=== PATIENT | female | born 1970 | race Caucasian/White ===

== ENCOUNTER 2022-12-11 17:44 | Emergency (ER) | payer BC, SELFPAY ==
[2022-12-11 17:52] VITALS: BP 116/79; PULSE 89; RESP 16; TEMP 36.5; O2SAT 99
--- NOTE | 2022-12-11 17:54 | ED.BACK ---
HPI - Back Pain/Injury General Chief Complaint: Back Pain/Injury Stated Complaint: Upper Back Pain Time Seen by Provider: 12/11/22 17:55 Source: patient and RN notes reviewed History of Present Illness HPI Narrative: Patient is a 52-year-old female presents to urgent care with complaints of right upper back pain radiating down the right arm. 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 Patient states that she went to the chiropractor and they told her ?she had a rib out of place?. Patient states that she went for a few days in a row and then he suggested she follow up with the urgent care. Patient has been taking multiple ibuprofen doses per day. Denies any known injury or any recent strenuous activity. No other acute complaints. No acute distress noted. Patient aware of plan of care. Some parts of this dictation were generated by voice recognition software and may contain typographical and/or grammatical inaccuracies. Related Data Allergies Allergy/AdvReac Type Severity Reaction Status Date / Time No Known Allergies Allergy Verified 12/11/22 18:14 Review of Systems Review of Systems: CONSTITUTIONAL: Denies fever, chills, or sweats. EYES: Denies visual changes, redness, or discharge. ENT: Denies rhinorrhea, congestion, sore throat, or otalgia. CARDIOVASCULAR: Denies chest pain, palpitations, or edema. RESPIRATORY: Denies cough or dyspnea. GASTROINTESTINAL: Denies abdominal pain, nausea, vomiting, or diarrhea. GENITOURINARY: Denies dysuria or hematuria. SKIN: Denies rash or itching. MUSCULOSKELETAL: Reports of right upper back pain radiating down the right arm NEUROLOGIC: Denies headache, numbness, or weakness. All other systems reviewed are negative, except as documented in HPI. PMFSH Comments At the time of my signature, I reviewed and agree with the nursing past medical, surgical, social, and family history. There is no relevant family history pertinent to the patient complaint. Exam Narrative: GENERAL: This is a well-nourished, well-developed patient, in no apparent distress. HEAD: normocephalic, atraumatic. EYES: PERRL. Sclera clear/white. Vision is grossly intact. EARS: External ears normal NOSE: External nose normal with no obvious nasal discharge, nares without redness, no rhinorrhea. THROAT: Mucous membranes moist NECK: Neck supple, non-tender without lymphadenopathy SKIN: warm, intact with no suspicious lesions or rash, good texture and turgor. NEURO: awake, alert, and oriented to person, place and time. There were no obvious focal neurologic abnormalities. EXTREMITIES: Range of motion right upper extremity within normal limits with mild exacerbated pain on adduction to the scapular region. Moderate tenderness to the right scapular region. Positive strong right radial pulse with capillary refill less than 2 seconds Course Course Level of Care: Express Care Visit Vital Signs Vital signs: Vital Signs Temperature 97.7 F 12/11/22 17:52 Pulse Rate 89 12/11/22 17:52 Respiratory Rate 16 12/11/22 17:52 Blood Pressure 116/79 12/11/22 17:52 Pulse Oximetry 99 12/11/22 17:52 Oxygen Delivery Room Air 12/11/22 17:52 Temperature 97.7 F 12/11/22 17:52 Pulse Rate 89 12/11/22 17:52 Respiratory Rate 16 12/11/22 17:52 Blood Pressure 116/79 12/11/22 17:52 Pulse Oximetry 99 12/11/22 17:52 Oxygen Delivery Room Air 12/11/22 17:52 Reviewed MDM - Back Pain/Injury MDM Narrative Medical decision making narrative: Advised patient to complete the steroid regimen as prescribed. Start the medication in the morning to avoid keeping you up at night. Use the Flexeril as needed for muscle relaxer. Best to take prior to bedtime. The medication will make you drowsy and would not advise operating heavy machinery or working while on the medication. You may cut the pill in half to decrease drowsiness. Use the ibuprofen as needed for pain or discomfort. Do not take in
== END 2022-12-11 18:28 | disposition home or self-care (01) ==
PROVIDERS: Emergency Provider Nurse Practitioner Family; PCP Emergency Medicine
DX: M54.12 Radiculopathy, cervical region (principal)
CPT/HCPCS: 99213; G0463

== ENCOUNTER 2023-01-25 14:45 | Emergency (ER) | payer BC, SELFPAY ==
--- NOTE | ~2023-01-25 | XR_ITS ---
EXAMINATION: XR chest 2V Exam Date/Time: 01/25/2023 15:15 CDT HISTORY: PERSISTANT COUGH. SOB/CONGESTION X 1 DAY. Comparison: None available. RESULT: Lines, tubes, and devices: None. Lungs and pleura: Mild diffuse reticulonodular opacities and cuffing. Cardiomediastinal silhouette: Unremarkable. Other: No acute osseous or upper abdominal finding. IMPRESSION: Pulmonary opacities may represent bronchiolitis, as can be seen with atypical infection, asthma, aspi ration, and small airways disease. Reviewed, dictated and finalized at location K. IMPRESSION: Pulmonary opacities may represent bronchiolitis, as can be seen with atypical i nfection, asthma, aspiration, and small airways disease.
[2023-01-25 14:52] VITALS: BP 168/90; PULSE 139; RESP 20; TEMP 37.2; O2SAT 96
--- NOTE | 2023-01-25 15:13 | ED.GENADULT ---
HPI - General Adult General Chief complaint: Upper Respiratory Infection Stated complaint: can't breath/coughing Source: patient Mode of arrival: ambulatory Limitations: no limitations History of Present Illness HPI narrative: Patient presents for evaluation of respiratory symptoms. She indicates she had itchy eyes and rhinorrhea on of last week. The following day she developed a fever. Yesterday she developed a cough which has been nonproductive in nature. She has associated SOB and a burning sensation in her chest. Denies any sore throat, nausea, vomiting, diarrhea. No recent sick contacts to her knowledge. She does not smoke. She has had COVID three times in the past. She has tried dayquil, nyquil, cough drops and theraflu for her symptoms. No personal or family history of DVT or PE. No leg swelling. She does receive estrogen replacement in pellet form. Related Data Home Medications Medication Instructions Recorded Confirmed progesterone micronized 100 mg 100 mg PO HS 01/25/23 01/25/23 capsule Allergies Allergy/AdvReac Type Severity Reaction Status Date / Time No Known Allergies Allergy Verified 01/25/23 14:57 Review of Systems Review of Systems: CONSTITUTIONAL: Reports fever. Denies chills, or sweats. EYES: Denies visual changes, redness, or discharge. ENT: Reports rhinorrhea and bilateral ear pain. Denies sore throat. CARDIOVASCULAR: Reports burning sensation in her chest. Denies chest pain, palpitations, or edema. RESPIRATORY: Reports nonproductive cough and shortness of breath. GASTROINTESTINAL: Denies abdominal pain, nausea, vomiting, or diarrhea. GENITOURINARY: Denies dysuria or hematuria. SKIN: Denies rash or itching. MUSCULOSKELETAL: Denies back pain, joint pain, or myalgia. NEUROLOGIC: Denies headache, numbness, dizziness, or weakness. PSYCHIATRIC: Denies anxiety or depression. [facility] Past Medical History Medical History No pertinent past medical history Surgical History Surgical History No pertinent past surgical history Family History Family History Mother Family history non-contributory Social History Social History Smoking status: Never smoker Substance use: never Gender identity (if verbalized by the patient): Female Spiritual care concerns: No Exam Narrative: GENERAL: Well-appearing, well-nourished, and in no acute distress. HEAD: Normocephalic, atraumatic. EYES: PERRLA and EOMI. ENT: Nares clear, no rhinorrhea or epistaxis. Mucous membranes moist. Oropharynx without tonsillar hypertrophy exudate or other lesions. Bilateral TMs pearly carlos nonbulging NECK: Supple. No adenopathy or masses. No carotid bruits or JVD CHEST: Cough present on exam. No adventitious lung sounds. HEART: Normal rhythm. Rate 120 during coughing episodes. No murmur heard. Normal peripheral pulses. ABDOMEN: Soft, nontender, nondistended, normal active bowel sounds. EXTREMITIES: Normal range of motion. No edema. SKIN: Warm, dry, no rash. NEURO: No focal deficits. Alert and oriented x3. PSYCH: Normal mood and affect. Course Course Emergency Course: This is a 52-year-old female who presented for evaluation of sick symptoms. COVID negative. Influenza A positive. Chest x-ray consistent with viral infection. She was given steroids and neb treatment while here. Cough significantly improved. Heart rate improved to 110 beats per minute. Tachycardia likely secondary to frequent coughing and albuterol. She feels comfortable going home. Increase hydration. [id number] agents for symptom management. Will DC with Tamiflu and albuterol. Go to the ER for difficulty breathing or swelling. Follow-up with primary provider. Patient in agre
[2023-01-25] MEDS: ALBUTEROL SULFATE NEB 2.5 MG/3 ML INH INHALATION (15:30)
[2023-01-25] MEDS: IPRATROPIUM BR 0.02% INH SOLN 0.5 MG/2.5 ML VIAL INHALATION (15:30)
[2023-01-25] MEDS: methylPREDNISolone SOD SUCC 125 MG VIAL IM (15:31)
== END 2023-01-25 16:23 | disposition home or self-care (01) ==
PROVIDERS: Emergency Provider Nurse Practitioner; PCP Family Medicine
DX: J10.1 Influenza due to other identified influenza virus with other respiratory manifestations (principal); Z20.822 Contact with and (suspected) exposure to COVID-19
CPT/HCPCS: 71046; 87426; 87804; 96372; 99213; C9803; G0463; J2930

== ENCOUNTER 2023-06-21 10:33 | Emergency (ER) | payer BC, SELFPAY ==
--- NOTE | ~2023-06-21 | XR_ITS ---
EXAMINATION: XR wrist LT min 3V DATE: 06/21/2023 11:02 INDICATION: Left wrist pain TECHNIQUE: Posteroanterior, ulnar deviation, oblique, and lateral views of the left wrist were obtain ed. COMPARISON: None available FINDINGS: Bone alignment is normal. There is no fracture. The soft tissues are unremarkable. IMPRESSION: 1. No acute osseous abnormality. Reviewed, dictated and finalized at location A.
[2023-06-21 10:40] VITALS: BP 113/66; PULSE 86; RESP 18; TEMP 36.6; O2SAT 98
[2023-06-21 10:55] VITALS: BP 113/66; PULSE 86; RESP 18; TEMP 36.6; O2SAT 98
--- NOTE | 2023-06-21 10:57 | ED.UPPEXIN ---
HPI - Extremity Injury (Upper) General Chief Complaint: Extremity Injury, Upper Stated Complaint: Left Wrist Injury History of Present Illness HPI narrative: patient presents with wrist pain left wrist pain. patient reports hitting the wall yesterday and felt a pop to left wrist. mild bruising to wrist no deformity noted no numbness or tingling no open areas noted Related Data Home Medications Medication Instructions Recorded Confirmed progesterone micronized 100 mg 100 mg PO HS 01/25/23 06/21/23 capsule Allergies Allergy/AdvReac Type Severity Reaction Status Date / Time No Known Allergies Allergy Verified 06/21/23 10:55 Review of Systems Review of Systems: CONSTITUTIONAL: Denies fever, chills, or sweats. EYES: Denies visual changes, redness, or discharge. ENT: Denies rhinorrhea, congestion, sore throat, or otalgia. CARDIOVASCULAR: Denies chest pain, palpitations, or edema. RESPIRATORY: Denies cough or dyspnea. GASTROINTESTINAL: Denies abdominal pain, nausea, vomiting, or diarrhea. GENITOURINARY: Denies dysuria or hematuria. SKIN: Denies rash or itching. MUSCULOSKELETAL: Denies back pain, joint pain, or myalgia. NEUROLOGIC: Denies headache, numbness, or weakness. PSYCHIATRIC: Denies anxiety or depression. [facility] Past Medical History Medical History No pertinent past medical history Surgical History Surgical History No pertinent past surgical history Family History Family History Mother Family history non-contributory Social History Social History Smoking status: Never smoker Substance use: never Gender identity (if verbalized by the patient): Female Spiritual care concerns: No Comments At time of signature, agree with nursing past medical, surgical, social and family history. There is no relevant family history pertinent to the presenting complaint Exam Narrative: GENERAL: Well-appearing, well-nourished, and in no acute distress. HEAD: Normocephalic, atraumatic. EYES: PERRLA and EOMI. ENT: Nares clear, no rhinorrhea or epistaxis. Mucous membranes moist. NECK: Supple. CHEST: Clear to auscultation. No respiratory distress. HEART: Regular rate and rhythm. No murmur heard. Normal peripheral pulses. ABDOMEN: Soft, nontender, nondistended, normal active bowel sounds. EXTREMITIES: Normal range of motion. No edema. HAND EXAM - Skin intact, no laceration, no swelling, no erythema, normal digit cascade with flexion of fingers, median nerve, ulnar nerve, radial nerve is intact. Normal sensation of each side of each finger, can perform `ok? sign, `cross over finger test of index and middle fingers? and `thumbs up? sign, normal thumb opposition, no scissoring. good capillary refill and radial pulse. normal flexion and extension of fingers and wrist. normal supination at wrist. Normal forearm and elbow exam.left wrist some bruising noted SKIN: Warm, dry, no rash. NEURO: No focal deficits. Alert and oriented x3. Two Dot Coma Scale Eye Opening: Spontaneous 4 Two Dot Coma Scale Motor: Obeys Commands 6 Sona Coma Scale Verbal: Oriented 5 Sona Coma Scale Total 15 Course Course Level of Care: Express Care Visit Vital Signs Vital signs: Vital Signs Temperature 36.6 C 06/21/23 10:40 Pulse Rate 86 06/21/23 10:40 Respiratory Rate 18 06/21/23 10:40 Blood Pressure 113/66 06/21/23 10:40 Pulse Oximetry 98 06/21/23 10:40 Oxygen Delivery Room Air 06/21/23 10:40 Temperature 36.6 C 06/21/23 10:55 Pulse Rate 86 06/21/23 10:55 Respiratory Rate 18 06/21/23 10:55 Blood Pressure 113/66 06/21/23 10:55 Pulse Oximetry 98 06/21/23 10:55 Oxygen Delivery Room Air 06/21/23 10:55 Discharge Plan Discharge Clin
== END 2023-06-21 11:25 | disposition home or self-care (01) ==
PROVIDERS: Emergency Provider Nurse Practitioner Family; PCP Family Medicine
DX: S63.502A Unspecified sprain of left wrist, initial encounter (principal); S66.912A Strain of unspecified muscle, fascia and tendon at wrist and hand level, left hand, initial encounter; W22.09XA Striking against other stationary object, initial encounter
CPT/HCPCS: 73110; 99213; G0463